=== PATIENT | female | born 1985 | race Caucasian/White ===

== ENCOUNTER 2018-08-25 18:13 | Emergency (ER) | payer OTHER ==
[~2018-08-25] VITALS: Wt 57.2 kg
[2018-08-25] MEDS ORDERED: LEVSIN-SL0.125 MG SL (19:03)
[2018-08-25] MEDS ORDERED: PHENERGAN25 M3 PO (19:04)
[2018-08-25] MEDS ORDERED: ASMANEX220 MC1 INH (19:05)
[2018-08-25] MEDS ORDERED: MULTI-VITAMIN1 EACH PO (19:05)
[2018-08-25] MEDS ORDERED: NORMAL SALINE FL1 ML IV (19:06)
[2018-08-25] MEDS ORDERED: POTASSIUM CHLO20 MEQ PO (19:06)
[2018-08-25] MEDS ORDERED: HEPARIN FL IV (19:06)
[2018-08-25] MEDS ORDERED: ASPIRIN CHEWABL81 MG PO (19:07)
[2018-08-25] MEDS ORDERED: ATARAX,VISTARIL50 MG PO (19:07)
[2018-08-25] MEDS ORDERED: Lopressor25 MG PO (19:08)
[2018-08-25 19:09] LABS: ACT PARTIAL THROMBO TIME 23.8 SECONDS (20.8-31.5)
[2018-08-25 19:13] LABS: ALBUMIN 3.2 gm/dl (3.1-4.5); ALKALINE PHOSPHATASE 104 U/L (45-117); BUN 3 mg/dl (7-24); CHLORIDE 111 mmol/L (98-107); LIPASE 206 U/L (73-393); POTASSIUM 3.7 mmol/L (3.5-5.1); SGOT/AST 11 IU/L (3-35); SGPT/ALT 12 U/L (12-78); SODIUM 141 mmol/L (136-145); TOTAL PROTEIN 7.2 gm/dL (6.4-8.2)
[2018-08-25 19:50] LABS: BILIRUBIN NEGATIVE (NEGATIVE); BLOOD NEGATIVE (NEGATIVE); CLARITY CLEAR (CLEAR); COLOR YELLOW (YELLOW); GLUCOSE NEGATIVE (NEGATIVE); KETONE NEGATIVE (NEGATIVE); LEUKO ESTERASE TRACE (NEGATIVE); NITRITE NEGATIVE (NEGATIVE); PH 6.5 (5.0-9.0); SPECIFIC GRAVITY <= 1.005 (1.005-1.030); UROBILINOGEN 0.2 E.U./dl (0.2-1.0)
[2018-08-25 19:59] LABS: BACTERIA TRACE; EPITHELIAL CELLS 40-45; RBC 0-2 rbc/hpf (0-2)
[2018-08-25 20:22] LABS: BASO % 0.4 % (0.0-1.0); EOS # 0.2 10*3/uL (0.0-0.4); EOS % 2.4 % (1.0-4.0); HEMATOCRIT 30.5 % (37.0-47.0); HEMOGLOBIN 9.4 g/dl (12.0-16.0); LYMPH # 1.9 10*3/uL (1.3-4.4); LYMPH % 23.9 % (27.0-41.0); MEAN CELL VOLUME 76.4 fl (81.0-99.0); MEAN CORPUSCULAR HGB 23.6 pg (27.0-31.0); MEAN CORPUSCULAR HGB CONC 30.8 g/dl (33.0-37.0); MONO # 0.5 10*3/uL (0.1-1.0); MONO % 5.7 % (3.0-9.0); NEUT # 5.3 10*3/uL (2.3-7.9); NEUT % 67.3 % (47.0-73.0); PLATELET COUNT AUTOMATED 285 10*3/uL (130-400); RED BLOOD COUNT 3.99 10*6/uL (4.10-5.10); RED CELL DISTRI WIDTH 18.1 % (0-14.5); WHITE BLOOD COUNT 7.9 10*3/uL (4.8-10.8)
[2018-08-25] MEDS ORDERED: DICYCLOMINE HCL20 MG PO (22:53)
[2018-08-25] MEDS ORDERED: TYLENOL325 M1 PO (22:53)
== END 2018-08-25 23:41 | disposition home or self-care (01) ==
LOC: ED 18:13
PROVIDERS: Nurse Practitioner Family
DX: R11.2 Nausea with vomiting, unspecified (principal); R10.33 Periumbilical pain; R10.31 Right lower quadrant pain; R19.7 Diarrhea, unspecified; R42 Dizziness and giddiness; J45.909 Unspecified asthma, uncomplicated; Z76.5 Malingerer [conscious simulation]; Z87.19 Personal history of other diseases of the digestive system; Z88.0 Allergy status to penicillin; Z88.1 Allergy status to other antibiotic agents; Z88.8 Allergy status to other drugs, medicaments and biological substances; Z79.899 Other long term (current) drug therapy; Z79.82 Long term (current) use of aspirin